=== PATIENT | female | born 1990 | race Two or more races ===

== ENCOUNTER 2016-09-19 19:40 | Observation (INO) | payer OTHER, MEDICAID ==
[~2016-09-19 19:40] MED LIST: COLACE100 M1 PO; FISH OIL SOFTGE1 CA1 PO; FLAGYL500 MG PO; IBUPROFEN600 M1 PO; IBUPROFEN800 MG PO; LORTAB 5-325 M1 EAC1 PO; OXYCODONE/APAP PO; PRENATAL1 EACH PO; TYLENOL325 M1 PO; TYLENOL325 M2 PO; VIBRAMYCIN100 MG PO
== END 2016-09-20 00:15 ==
LOC: LDR 19:40
PROVIDERS: ADMIT Family Medicine
DX: O46.92 Antepartum hemorrhage, unspecified, second trimester (principal); Z3A.23 23 weeks gestation of pregnancy